=== PATIENT | female | born 1970 | race Caucasian/White ===

== ENCOUNTER → 2023-09-19 | Outpatient (CLI) | payer BC ==
--- NOTE | 2023-09-20 10:13 | MM ---
Reason for Exam: Screening (asymptomatic). Patient History: Menarche at age 12. First Full-Term at age 23. Last menstrual period: Risk Values: Keyla 5 year model risk: 1.0%. NCI Lifetime model risk: 7.7%. Prior Study Comparison: No prior studies available for comparison. Tissue Density: The breasts are extremely dense, which lowers the sensitivity of mammography. Findings: Analyzed By CAD. There is no suspicious group of microcalcifications or new suspicious mass in either breast. Overall Assessment: Negative, BI-RAD 1 Management: Screening Mammogram of both breasts in 1 year. . Patient should continue monthly self-breast exams. A clinical breast exam by your physician is recommended on an annual basis. This exam should not preclude additional follow-up of suspicious palpable abnormalities. Note on Keyla scores and lifetime risk: 1. A Keyla score greater than 3% is considered moderate risk. If this is the case, consider specialist referral to assess eligibility for a risk reducing agent. 2. If overall lifetime risk for the development of breast cancer is 20% or higher, the patient may qualify for future screening with alternating mammogram and breast MRI. Electronically signed and approved by: Dakota Florez M.D. Radiologis
--- NOTE | 2023-09-20 13:17 | BD ---
EXAMINATION TYPE: Axial Bone Density DATE OF EXAM: 09/19/2023 CLINICAL HISTORY: 53 years old Female. ICD-10 CODE: Z78.0 Postmenopausal Height: 67.5 Weight: 121 FRAX RISK QUESTIONS: Family History (Parent hip fracture): no History of Fracture in Adulthood: no Secondary Osteoporosis: no Current Tobacco Use: yes RISK FACTORS HISTORY OF: Surgery to Spine/Hip(right/left)/Wrist (right/left): no MEDICATIONS: Thyroid Medications: no Osteoporosis Medications: no EXAM MEASUREMENTS: Bone mineral densitometry was performed using the ZYB System. Bone mineral density as measured about the Lumbar spine is: ----- L1-L4(G/cm2): 1.074 T Score Values are as follows: ----- L1: -1.1 ----- L2: -0.9 ----- L3: -0.6 ----- L4: -1.2 ----- L1-L4: -0.9 Z Score Values are as follows: ----- L1: -0.1 ----- L2: 0.1 ----- L3: 0.5 ----- L4: -0.2 ----- L1-L4: 0.1 Bone mineral density baseline Bone mineral density about the R hip (g/cm2): 0.901 Bone mineral density about the L hip (g/cm2): 0.881 T Score values are as follows: -----R Neck: -1.4 -----L Neck: -1.6 -----R Total: -0.8 -----L Total: -1.0 Z Score values are as follows: -----R Neck: -0.3 -----L Neck: -0.4 -----R Total: 0.0 -----L Total: -0.2 Bone mineral density baseline FRAX%s: The graph provided illustrates a 5.3% chance for a major osteoporotic fx and a 0.8% chance fo r the hips probability for fx in 10 years time. IMPRESSION: Osteopenia (T Score between -2.5 and -1). There is slightly increased risk of fracture and the patient may be considered for treatment. Re-Screen 2-5 years. NOTE: T-SCORE=SD OF THE YOUNG ADULT MEAN.
== END | disposition home or self-care (01) ==
LOC: RADMAMWWP 15:20
PROVIDERS: ATTEND Family Medicine
DX: Z12.31 Encounter for screening mammogram for malignant neoplasm of breast (principal); R92.343 Mammographic extreme density, bilateral breasts; M85.89 Other specified disorders of bone density and structure, multiple sites; Z78.0 Asymptomatic menopausal state
CPT/HCPCS: 77067; 77080